=== PATIENT | female | born 2000 | race Caucasian/White ===

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

== ENCOUNTER → 2024-05-11 18:18 | Outpatient (ROUT) | payer OTHER, SELFPAY ==
[2024-05-11 19:31] LABS: Influenza A - CEPHEID Flu A NEGATIVE (NEGATIVE); Influenza B - CEPHEID Flu B NEGATIVE (NEGATIVE); Respiratory Syncytial Virus Negative (Negative)
[2024-05-11 19:32] LABS: COVID-19 CEPHEID 4-PLEX PCR Negative (Negative)
== END ==
PROVIDERS: Family Provider Internal Medicine; PCP Internal Medicine; Visit Provider Internal Medicine
DX: J02.9 Acute pharyngitis, unspecified (principal); R09.81 Nasal congestion; R05.9 Cough, unspecified
CPT/HCPCS: 0241U

== ENCOUNTER → 2024-08-04 15:02 | Outpatient (CLI) | payer OTHER, SELFPAY ==
--- NOTE | 2024-08-04 15:05 | DI.RAD.S_ITS ---
PROCEDURE: XR FOOT LT 2V INDICATIONS: Other congenital malformations of lower limb(s), including p TECHNIQUE: Two views of the left foot were acquired. COMPARISON: [facility], CR, XR FOOT RT MIN 3V, 07/25/2020, 9:16. 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 . Mild pes planus. No focal osseous abnormality. Joints: The joint spaces are normal in width and alignment without arthritic change. Soft tissues: No soft tissue abnormality. IMPRESSION: Minor chronic findings -as described . Dictated by: Evin Morales M.D. on 08/05/2024 at 11:04 Approved by: Evin Morales M.D. on 08/05/2024 at 11:05
== END ==
PROVIDERS: Family Provider Internal Medicine; PCP Registered Nurse; Referring Provider Registered Nurse; Visit Provider Registered Nurse
DX: M79.672 Pain in left foot (principal); Q74.2 Other congenital malformations of lower limb(s), including pelvic girdle
CPT/HCPCS: 73620

== ENCOUNTER → 2025-02-15 15:36 | Outpatient (CLI) | payer OTHER, SELFPAY ==
--- NOTE | 2025-02-15 15:40 | DI.RAD.S_ITS ---
PROCEDURE: XR FOOT RT MIN 3V INDICATIONS: RT FOOT PAIN TECHNIQUE: 3 views of the foot were acquired. COMPARISON: [facility], CR, XR FOOT LT 2V, 08/04/2024, 15:14. [facility], CR, XR FOOT RT MIN 3V, 07/25/2020, 9:16. FINDINGS: Bones: No fractures or dislocations. No suspicious bony lesions. Soft tissues: No tibiotalar joint effusion. Achilles tendon appears normal. IMPRESSION: No acute bony abnormality. Specifically, no abnormality along the dorsal midfoot. Dictated by: Jorge Alberto Al M.D. on 02/15/2025 at 17:03 Approved by: Jorge Alberto Al M.D. on 02/15/2025 at 17:04
== END ==
PROVIDERS: Family Provider Internal Medicine; PCP Registered Nurse; Referring Provider Registered Nurse; Visit Provider Registered Nurse
DX: M79.671 Pain in right foot (principal)
CPT/HCPCS: 73630